=== PATIENT | male | born 1945 | race Caucasian/White ===

== ENCOUNTER → 2018-05-04 09:21 | Outpatient (CLI) | payer MEDICARE, SELFPAY ==
[2018-05-04 12:06] LABS: Anion Gap 8 (5-15); BUN 11 mg/dL (7-18); BUN/Creat Ratio 10.1 RATIO (10-20); Calcium,Total 9.1 mg/dL (8.5-10.1); Chloride 103 mmol/L (98-107); Creatinine, Serum 1.09 mg/dL (0.70-1.30); EST Glomerular Filtration Rate 71 mL/min (>60); Est Glom Filt Rate - Afr Amer 85 mL/min (>60); Glucose 106 mg/dL (74-106); Sodium Level 139 mmol/L (136-145)
[2018-05-04 12:08] LABS: Microalbumin,Random Urine 10.5 mg/L (NO RANGE EST.); Microalbumin:Creatinine Ratio 8.5 mg/g CRE (<30 mg/g CRE)
== END ==
PROVIDERS: Family Provider Family Medicine; PCP Family Medicine; Visit Provider Family Medicine
DX: I10 Essential (primary) hypertension (principal)
CPT/HCPCS: 36415; 80048; 82043; 82570

== ENCOUNTER → 2018-07-26 17:21 | Outpatient (CLI) | payer MEDICARE, SELFPAY ==
--- NOTE | 2018-07-26 17:26 | RAD_ITS ---
STUDY: X-RAY CHEST REASON FOR EXAM: Male, 73 years old. Fever and cough TECHNIQUE: PA and lateral views of the chest. COMPARISON: None. FINDINGS: Left lung is clear and well expanded. There is opacification in the right lung base with blunting of the right costophrenic angle suggesting a likely combination of infiltrate and effusion. Follow-up recommended to assure resolution. Normal size heart. Normal mediastinum and marcia. Normal visualized pulmonary arteries. Normal visualized aortic arch and descending thoracic aorta. Normal visualized thoracic spine. Normal visualized ribs, clavicles, and shoulders. There is no demonstrated abnormality of the visualized soft tissue structures of the upper abdomen. RAD/Chest PA and Lateral IMPRESSION: Right lower lobe pneumonia with pleural effusion. Follow-up recommended to assure resolution Electronically Signed: Gianluca Sequeira MD at 15:58 EST , Service support ,
--- OUTSIDE RECORDS SUMMARY | 2018-10-28 09:43 | XMS RPT_ITS ---
:1945 Author Organization OHIP Care Team Providers Name Role Phone Gino Camara Attending Unavailable Jax, Gino Referring Unavailable Jax, Gino Primary Care Unavailable Jax, Gino Attending Unavailable Camara, Gino Primary Care Unavailable Camara, Gino Attending Unavailable Camara, Gino Primary Care Unavailable PROBLEMS PROBLEMS DATE TYPE CONDITION / CODE ATTENDING STATUS SOURCE 05/10/2018 Unknown I10 - Essential Camara, Gino Active Louie (primary) [facility] hypertension / Hospital I10(ICD-10) Repository PROCEDURES PROCEDURES No Procedure Records FoundRESULTS RESULTS PROTHROMBIN TIME W/INR Collected: 07/28/2018 Status: F Source: [place] 11:[address] [facility] REPOSITORY TYPE CODE TESTS RESULT OUT OF RANGE REFERENCE UNITS LAB L300.4150 11.7-14.9 SECONDS Normal PROTIME 12.8 LAB L300.4200 Normal INR 1.0 Performed By: #### L300.3900 #### [facility] [address] [place], [address] PARTIAL THROMBOPLAST Collected: 07/28/2018 Status: F Source: LOUIE TIME 11:[address] [facility] REPOSITORY TYPE CODE TESTS RESULT OUT OF RANGE REFERENCE UNITS LAB L300.4310 24.1-36.2 Seconds Normal PTT 25.7 Performed By: #### L300.4310 #### [facility] [address] [place], [address] LDH Collected: 07/28/2018 Status: F Source: LOUIE 11:[address] [facility] REPOSITORY Order Comment: Serial Specimen #1, #2 or #3? 1 TYPE CODE TESTS RESULT OUT OF RANGE REFERENCE UNITS LAB L504.2610 87-241 U/L Normal LDH 226 Performed By: #### L504.2610 #### [facility] [address] [place], [address] CHEST PA AND LATERAL Observed: 07/26/2018 Status: F Source: [place] 5:[address] [facility] REPOSITORY [facility] Imaging Services [address] [place] [address] Chest PA and Lateral MR#: [id number] Acct: [id number] Name: JAYESH PINEDA Rep #: [id number] : 1945 M 73 From: Juntio Sequeira MD PCP: Gino Camara MD Status: REG CLI Study: Chest PA and Lateral Date of Exam: 07/26/18 Exam# [id number] Ordering Dr: Gino Camara MD STUDY: X-RAY CHEST REASON FOR EXAM: Male, 73 years old. Fever and cough TECHNIQUE: PA and lateral views of the chest. COMPARISON: None. FINDINGS: Left lung is clear and well expanded. There is opacification in the right lung base with blunting of the right costophrenic angle suggesting a likely combination of infiltrate and effusion. Follow-up recommended to assure resolution. Normal size heart. Normal mediastinum and marcia. Normal visualized pulmonary arteries. Normal visualized aortic arch and descending thoracic aorta. Normal visualized thoracic spine. Normal visualized ribs, clavicles, and shoulders. There is no demonstrated abnormality of the visualized soft tissue structures of the upper abdomen. RAD/Chest PA and Lateral IMPRESSION: Right lower lobe pneumonia with pleural effusion. Follow- up recommended to assure resolution Electronically Signed: Gianluca Sequeira MD at 15:58 EST , Service support , CC: Gino Camara MD Lining Machine Tender: Signed BASIC METABOLIC Collected: 05/04/2018 Status: F Source: LOUIE PROFILE (BMP) 9:[address] [facility] REPOSITORY TYPE CODE TESTS RESULT OUT OF RANGE REFERENCE UNITS LAB L501.0100 74-106 mg/dL Normal GLU 106 Result Comment: Fasting Glucose result from 100 to 125 mg/dL suggests IMPAIRED HOMEOSTASIS per A.D.A. criteria. Please note revised GLUCOSE reference range effective 2017. LAB L501.1000 7-18 mg/dL Normal BUN 11 LAB L501.1100 0.70-1.30 mg/dL Normal CREAT,SERUM 1.09 Result Comment: The validity of the calculated GFR AND GFRAA in patients over 70 years has not been determined. Clinical correlation is essential. LAB L501.1110 >60 mL/min Normal EST GFR 71 Result Comment: Non- GFR Calc LAB L501.1115 >60 mL/min Normal EST GFR - AA 85 Result Comment: GFR Calc LAB L501.1300 10-20 RATIO Normal BUN/CRE 10.1 LAB L501.2200 8.5-10.1 mg/dL CA Normal 9.1 LAB L501.5300 136-145 mmol/L NA Normal 139 LAB L501.5600 3.5-5.1 mmol/L K Normal 4.0 Result Comment: Slight Hemolysis, Result may be falsely increased. LAB L501.5900 98-107 mmol/L Normal CL 103 LAB L501.6100 21.0-32.0 mmol/L Normal CO2 28.0 LAB L501.6200 5-15 Normal 8 GAP Performed By: #### L500.2500, L502.0250 #### [facility] [address] [place], [address] MICROALB:CREAT Collected: 05/04/2018 Status: F Source: LOUIE RATIO,RANDOM UR 9:[address] [facility] REPOSITORY TYPE CODE TESTS RESULT OUT OF RANGE REFERENCE UNITS LAB L501.1200 NO RANGE EST. mg/dL Normal UR CREAT 124.00 LAB L502.0500 NO RANGE EST. mg/L Normal 10.5 MICROALBUMIN ,UR LAB L502.0600 <30 mg/g CRE mg/g CRE Normal 8.5 MALB:CREAT Performed By: #### L500.2500, L502.0250 #### [facility] [address] [place], [address] ALLERGIES ALLERGIES No Allergies Records FoundENCOUNTERS ENCOUNTERS ADMIT/DISCHARGE ACCOUNT ADMITTING ENCOUNTER LOCATION SOURCE NUMBER CLASS 07/28/2018 [id number] Ambulatory [place] 3 [facility] ing:MFPLAB Repository 07/26/2018 [id number] Ambulatory [place]ie [place] 2 [facility] ing:MTRAD Repository 05/04/2018 [id number] Ambulatory [place] 0 [facility] ing:MFPLAB Repository PAYERS PAYERS ENCOUNTER GUARANTOR PAYER SUBSCRIBER SOURCE 07/28/2018 JAYESH D Primary JAYESH D [place] [id number] [facility] Number: [id number] [id number] Repository [address]Fyc: 330) Date:1206-92-88FH [phone] () [place] [address]LI: 07/28/2018 Secondary NOT GIVENUNK [place] Insurance:SELF PAY [facility] Number: Effective Repository Date:2018-07-28 07/26/2018 JAYESH D Primary JAYESH D [place] [id number] Insurance:AETNA BARBARAPHREYDOB: [facility] Number: [id number] [id number] Repository [address]Dyt: 330) Date:5830-01-23GN [phone] () [id number] [address]PK: 07/26/2018 Secondary NOT GIVENUNK [place] Insurance:SELF PAY [facility] Number: Effective Repository Date:2018-07-26 05/04/2018 JAYESH D Primary JAYESH D [place] [id number] Insurance:AETNA HUMPHREYDOB: [facility] Number: [id number] [place], [place] [id number] Repository [address]Sfz: 330) Date:5994-86-51AE [phone] () [id number] [place] [address]LD: 05/04/2018 Secondary NOT GIVENUNK [place] Insurance:SELF PAY [facility] Number: Effective Repository Date:2018-05-04
== END ==
PROVIDERS: Family Provider Family Medicine; PCP Family Medicine; Referring Provider Family Medicine; Visit Provider Family Medicine
DX: J15.9 Unspecified bacterial pneumonia (principal)
CPT/HCPCS: 71046

== ENCOUNTER → 2018-07-28 11:11 | Outpatient (CLI) | payer MEDICARE, SELFPAY ==
[2018-07-28 12:26] LABS: Prothrombin Time (Protime)PT. 12.8 SECONDS (11.7-14.9)
[2018-07-28 12:27] LABS: Partial Thromboplast Time 25.7 Seconds (24.1-36.2)
[2018-07-28 12:53] LABS: LDH 226 U/L (87-241)
--- OUTSIDE RECORDS SUMMARY | 2018-10-29 15:26 | XMS RPT_ITS ---
[...] - Essential Camara, Gino Active Louie (primary) [facility] hypertension / Hospital I10(ICD-10) Repository PROCEDURES PROCEDURES No Procedure Records FoundRESULTS RESULTS PROTHROMBIN TIME W/INR Collected: 07/28/2018 Status: F Source: [place] 11:12 AM [facility] REPOSITORY TYPE CODE TESTS RESULT OUT OF RANGE REFERENCE UNITS LAB L300.4150 11.7-14.9 SECONDS Normal PROTIME 12.8 LAB L300.4200 Normal INR 1.0 Performed By: #### L300.3900 #### [facility] [address] [place], [address] PARTIAL THROMBOPLAST Collected: 07/28/2018 Status: F Source: [place]OU[place] TIME 11:12 AM [facility] REPOSITORY TYPE CODE TESTS RESULT OUT OF RANGE REFERENCE UNITS LAB L300.4310 24.1-36.2 Seconds Normal PTT 25.7 Performed By: #### L300.4310 #### [facility] [address] [place], [address] LDH Collected: 07/28/2018 Status: F Source: [place] 11:12 AM [facility] REPOSITORY Order Comment: Serial Specimen #1, #2 or #3? 1 TYPE CODE TESTS RESULT OUT OF RANGE REFERENCE UNITS LAB L504.2610 87-241 U/L Normal LDH 226 Performed By: #### L504.2610 #### [facility] [address] [place], [address] CHEST PA AND LATERAL Observed: 07/26/2018 Status: F Source: [place] 5:26 PM [facility] REPOSITORY [facility] Imaging Services [address] [place] [address] Chest PA and Lateral MR#: [id number] Acct: [id number] Name: JAYESH PINEDA Rep #: [id number] : 1945 M 73 From: Junito Sequeira MD PCP: Gino Camara MD Status: REG CLI Study: Chest PA and Lateral Date of Exam: 07/26/18 Exam# [id number] Ordering Dr: Gino Camara MD STUDY: X-RAY [...] Service support , CC: Gino Camara MD Electrotyper: Signed BASIC METABOLIC Collected: 05/04/2018 Status: F Source: [place] PROFILE (BMP) 9:24 AM [facility] REPOSITORY TYPE CODE TESTS RESULT OUT OF [...] GAP Performed By: #### L500.2500, L502.0250 #### [facility] [address] [place], [address] MICROALB:CREAT Collected: 05/04/2018 Status: F Source: LOUIE RATIO,RANDOM UR 9:24 AM [facility] REPOSITORY TYPE CODE TESTS RESULT OUT OF RANGE REFERENCE UNITS LAB L501.1200 NO RANGE EST. mg/dL Normal UR CREAT 124.00 LAB L502.0500 NO RANGE EST. mg/L Normal 10.5 MICROALBUMIN ,UR LAB L502.0600 <30 mg/g CRE mg/g CRE Normal 8.5 MALB:CREAT Performed By: #### L500.2500, L502.0250 #### [facility] [address] [place], [address] ALLERGIES ALLERGIES No Allergies Records FoundENCOUNTERS ENCOUNTERS ADMIT/DISCHARGE ACCOUNT ADMITTING ENCOUNTER LOCATION SOURCE NUMBER CLASS 07/28/2018 [id number] Ambulatory Lou[place] 3 [facility] ing:MFPLAB Repository 07/26/2018 [id number] Ambulatory [place] 2 [facility] ing:MTRAD Repository 05/04/2018 [id number] Ambulatory [place] 0 [facility] ing:MFPLAB Repository PAYERS PAYERS ENCOUNTER GUARANTOR PAYER SUBSCRIBER SOURCE 07/28/2018 JAYESH D Primary JAYESH D [place] [id number] Insurance:A[facility]NA [facility] Number: [id number] [id number] Repository [address]Bmj: 330) Date:9766-02-97RG [phone] () [id number], [place] [address]QC: 07/28/2018 Secondary NOT GIVENUNK [place] Insurance:SELF PAY [facility] Number: Effective Repository Date:2018-07-28 07/26/2018 JAYESH D Primary JAYESH D [place] [id number] Insurance:AETNA BARBARAPHREYDOB: [facility] Number: [id number] [id number] Repository [address]Dxi: 330) Date:6065-72-57AG [phone] () [place], [place] [address]XD: 07/26/2018 Secondary NOT GIVENUNK [place] Insurance:SELF PAY [facility] Number: Effective Repository Date:2018-07-26 05/04/2018 JAYESH D Primary JAYESH D [place] [id number] Insurance:AETNA HUMPHREYDOB: [facility] Number: [id number] [place], [place] [id number] Repository [address]Vsa: 330) Date:7211-17-88DP [phone] () [id number] [place] [address]FD: 05/04/2018 Secondary NOT GIVENUNK [place] Insurance:SELF PAY [facility] Number: Effective Repository Date:2018-05-04
== END ==
PROVIDERS: Family Provider Family Medicine; PCP Family Medicine; Visit Provider Family Medicine
DX: Z98.890 Other specified postprocedural states (principal)
CPT/HCPCS: 36415; 83615; 85610; 85730

== ENCOUNTER → 2019-04-25 11:36 | Outpatient (CLI) | payer MEDICARE, SELFPAY ==
--- NOTE | 2019-04-25 11:42 | RAD_ITS ---
STUDY: X-RAY CHEST REASON FOR EXAM: Male, 74 years old. Cough TECHNIQUE: Frontal and lateral views COMPARISON: July 26, 2018 FINDINGS: The lungs are expanded. There is a right pleural effusion with basilar infiltrate. Borderline size heart. Normal mediastinum and marcia. Normal visualized pulmonary arteries. Normal visualized aortic arch and descending thoracic aorta. Normal visualized thoracic spine. Normal visualized ribs, clavicles, and shoulders. There is no demonstrated abnormality of the visualized soft tissue structures of the upper abdomen. RAD/Chest PA and Lateral IMPRESSION: Right basilar effusion with infiltrate. Electronically Signed: Jeffrey Rowe DO at 23:29 EDT Tel [phone], Service support ,
--- NOTE | 2019-04-25 11:42 | RAD_ITS ---
STUDY: X-RAY - PARANASAL SINUSES REASON FOR EXAM: Male, 74 years old. Cough, sinusitis. Recently finished right lung radiation therapy. TECHNIQUE: 3 view(s) of the paranasal sinuses were obtained. COMPARISON: None. FINDINGS: Normal visualized frontal, maxillary, ethmoidal and sphenoid sinuses. Normal visualized facial bones. The facial and extracranial soft tissue structures are unremarkable. Incidental note of lobulated calcification along the anterior falx cerebri, as well as calcifications in the expected position of the pineal gland. RAD/Sinuses min 3 Views IMPRESSION: Normal x-rays of the paranasal sinuses. Electronically Signed: Gianluca Braga MD at 13:34 EDT , Service support ,
== END ==
PROVIDERS: Family Provider Family Medicine; PCP Family Medicine; Referring Provider Family Medicine; Visit Provider Family Medicine
DX: J32.9 Chronic sinusitis, unspecified (principal); R05 Cough
CPT/HCPCS: 70220; 71046

== ENCOUNTER → 2019-04-28 14:36 | Outpatient (CLI) | payer MEDICARE, SELFPAY ==
--- NOTE | 2019-04-28 14:39 | CT_ITS ---
STUDY: CT CHEST WITHOUT CONTRAST REASON FOR EXAM: Male, 74 years old. Pleural effusion. Pulmonary infection. History of sarcoma and melanoma. RADIATION DOSAGE (If Supplied By Facility): CTDIvol = ( 16.27 ) mGy, DLP = ( 619.38 ) mGycm TECHNIQUE: Transaxial imaging was performed without the administration of intravenous contrast material. Individualized dose optimization techniques were used for this CT. COMPARISON: Chest x-ray 07/26/2018, and 04/25/2019. FINDINGS: There is underlying hyperexpansion of the lungs consistent with chronic pulmonary disease. Moderately extensive complex pulmonary density seen in the lower right hemithorax where there is pleural thickening and/or fluid in the lower hemithorax including what appears to be a lenticular loculated pleural fluid collection measuring approximately 10.2 x 2.9 x 10.2 cm along the lateral lower hemithorax. A small amount of free pleural effusion is also likely. Extensive and irregular pulmonary opacities are seen in the right lung base and middle lobe, possibly scarring, atelectasis or infiltrate, but neoplasm is not excluded. Some air bronchograms and localized bronchiectasis is seen in the lower right lung. Normal left lung. No left pleural effusion. Evaluation of the soft tissues is limited by the absence of IV contrast. Normal heart size. Calcified coronary arteries. Grossly normal aorta and pulmonary arteries. Calcified granulomas in the right hilum and subcarinal space. No gross mediastinal mass or adenopathy. Limited views of the upper abdomen show a probable 2 cm cyst in the liver. Skeletal structures are unremarkable. CT/Chest without Contrast IMPRESSION: Abnormalities in the lower right hemithorax most suggestive of chronic pleural parenchymal scarring although active disease including atelectasis, infiltrate and/or neoplasm cannot be excluded. There is a least one focal loculated pleural fluid collection. Electronically Signed: Kavon Jordan MD at 18:50 EDT , Service support ,
== END ==
PROVIDERS: Family Provider Family Medicine; PCP Family Medicine; Referring Provider Family Medicine; Visit Provider Family Medicine
DX: J18.9 Pneumonia, unspecified organism (principal)
CPT/HCPCS: 71250

== ENCOUNTER → 2020-01-24 09:10 | Outpatient (CLI) | payer MEDICARE, SELFPAY ==
--- NOTE | 2020-01-24 09:13 | RAD_ITS ---
PROCEDURE: Sniff test. DATE OF EXAMINATION: January 24, 2020 INDICATION: Male, 75 years old. Dyspnea. History of sarcoma. FLUOROSCOPY TIME (if supplied): (20 seconds) minutes/seconds. One image was obtained. There is normal excursion of the diaphragms during the inspiration expiration maneuvers. RAD/Chest Sniff Test Fluoro Only IMPRESSION: Normal excursion of the diaphragms. Electronically Signed: Domingo Johnson, at 9:34 EDT , Service support ,
== END ==
PROVIDERS: PCP Family Medicine; Referring Provider Internal Medicine Pulmonary Disease; Visit Provider Internal Medicine Pulmonary Disease
DX: R06.00 Dyspnea, unspecified (principal)
CPT/HCPCS: 76000

== ENCOUNTER → 2020-02-08 08:47 | Outpatient (CLI) | payer MEDICARE, SELFPAY ==
--- NOTE | 2020-02-08 08:52 | RAD_ITS ---
STUDY: X-RAY - LUMBAR SPINE REASON FOR EXAM: Male, 75 years old. LBP TECHNIQUE: 5 view(s) of the lumbar spine were obtained. COMPARISON: None FINDINGS: Normal lumbar lordosis. There is no substantial scoliosis. There is a normal alignment of the vertebrae. Normal vertebral bodies and endplates. Normal disc space heights. Vascular calcifications. RAD/L/S Spine Min 4 Views IMPRESSION: Normal x-ray examination of the lumbar spine. Electronically Signed: Olu Orta MD at 17:13 EDT Tel , Service support ,
== END ==
PROVIDERS: PCP Family Medicine; Referring Provider Nurse Practitioner Family; Visit Provider Nurse Practitioner Family
DX: M54.9 Dorsalgia, unspecified (principal)
CPT/HCPCS: 72110

== ENCOUNTER → 2020-02-29 06:24 | Outpatient (CLI) | payer MEDICARE, SELFPAY ==
--- NOTE | 2020-02-29 06:31 | MRI_ITS ---
STUDY: MRI LUMBAR SPINE WITHOUT CONTRAST REASON FOR EXAM: Male, 75 years old. BACK PAIN -- pain low back, left side, left leg x 2 months, hx rt lung sarcoma 2018 TECHNIQUE: Standardized fat and water weighted pulse sequences were obtained in the sagittal and axial planes. COMPARISON: None FINDINGS: T12-L1: Normal endplates. Normal disc height, hydration and morphology. Normal bilateral facet joints. Normal central canal and bilateral lateral recesses. Normal bilateral intervertebral neural foramina. Normal lumbar lordosis. There is no substantial scoliosis. Normal conus medullaris that terminates at the L1. L1-2: Normal endplates. Normal disc height, hydration and morphology. Normal bilateral facet joints. Normal central canal and bilateral lateral recesses. Normal bilateral intervertebral neural foramina. L2-3: Normal endplates. Normal disc height, hydration and morphology. Normal bilateral facet joints. Normal central canal and bilateral lateral recesses. Normal bilateral intervertebral neural foramina. L3-4: Normal endplates. Normal disc height, hydration and morphology. Normal bilateral facet joints. Normal central canal and bilateral lateral recesses. Normal bilateral intervertebral neural foramina. L4-5: Mild broad disc protrusion produces minimal spinal stenosis and mild bilateral neural foraminal stenosis. L5-S1: Normal endplates. Normal disc height, hydration and morphology. Normal bilateral facet joints. Normal central canal and bilateral lateral recesses. Normal bilateral intervertebral neural foramina. Normal visualized sacral ala. Large (5 x 7 x 12 cm) bilobed heterogeneous mass of the left paraspinous musculature. Differential diagnosis includes a intramuscular hematoma from anticoagulation, or sarcoma. MRI/Spine Lumbar (Routine) IMPRESSION: 1. Essentially Normal unenhanced MR examination of the lumbar spine. 2. Large (5 x 7 x 12 cm) bilobed heterogeneous mass of the left paraspinous musculature worrisome for intramuscular hematoma or a sarcoma. Electronically Signed: Marito Alves MD at 8:23 EDT Tel , Service support ,
== END ==
PROVIDERS: PCP Family Medicine; Referring Provider Anesthesiology Pain Medicine; Visit Provider Anesthesiology Pain Medicine
DX: M47.819 Spondylosis without myelopathy or radiculopathy, site unspecified (principal)
CPT/HCPCS: 72148

== ENCOUNTER → 2020-03-02 14:03 | Outpatient (CLI) | payer MEDICARE, SELFPAY ==
--- NOTE | 2020-03-02 | IMM_PTH ---
PATIENT: JAYESH PINEDA LOC: [facility] U#:[id number] AGE/SX: 80/M ROOM: RE03/02/[address]: Dr. Andrea Spring MD : 1945 BED: DIS: SPEC #: [id number] RECD: 03/06/20 12:31 STATUS: TIM REQ #: [id number] CAROL: 03/02/20 00:[address]: Andrea Spring DEPT: IMMUNOHISTOCHEMISTRY RECD BY: Rocio Davenport ENTERED: 03/06/20 12:32 SP TYPE: IMMUNO OTHR DR: Dr. Gino Camara MD Tissues: Skin of back, NOS Procedures: SMA (add) CD31 (add) CD34 (add) CD45 (add) DESMIN (add) KI-67 (add) P53 (add) Vimentin (add) SMM (add) FACTOR VIII (add) Pankeratin (initial) MELAN-A (add) S-100 (add) PHYSICIAN & [address] [address] SPECIMEN INFORMATION: Tissue Source: Left lower back mass biopsy Clinical Info: Left lower back mass Specimen Number: [id number] CPT code: 44205, 03749 x12 METHODOLOGY: Deparaffinized sections of prefer/formalin-fixed tissue or PAP/DQ stained slides are incubated with monoclonal/polyclonal antibodies/oligonucleotide probes. Localization is made via biotin free immunoperoxidase method. Appropriate controls are performed and reacted as expected. Results on target cell population are indicated in the following table: RESULTS: ANTIBODY / CLONE RESULT AE1-3 (AE1/AE3/PCK26) negative CD45 (RP2/18) negative Vimentin (V9) positive Melan A (A103) negative S-100 (4C4.9) negative P53 (DO-7) negative Ki-67 (30-9) positive, >90% Actin (1A4) negative Desmin (CE-R-11) negative Myosin (simms1) negative CD34 (QBEnd-10) negative Factor VIII (R Ag) negative CD31 (APRIL/70A) positive These tests were developed and their performance characteristics determined by [facility]. They may not have been cleared or approved by the U.S. Food and Drug Administration. The FDA has determined that such clearance or approval is not necessary. The above immunohistochemical/dualISH markers are ordered and reviewed by the Pathologist. INTERPRETATION: Left lower back mass, biopsy: Consistent with high-grade sarcoma. AM:fly 03/14/20 Case has been reviewed in consultation with Dr. Harrison who concurs with the above diagnosis. IDC:SJ
--- NOTE | 2020-03-02 | MASS_PTH ---
PATIENT: JAYESH PINEDA LOC: [facility] U#:[id number] AGE/SX: 80/M ROOM: RE03/02/[address]: Dr. Andrea Spring MD : 1945 BED: DIS: SPEC #: [id number] RECD: 03/02/20 14:01 STATUS: TIM ZACHARY #: [id number] CAROL: 03/02/20 00:[address]: Andrea Spring DEPT: SURGICAL PATHOLOGY RECD BY: Jose Dumont ENTERED: 03/05/20 07:59 SP TYPE: Mass OTHR DR: Dr. Gino Camara MD Tissues: Back, NOS Procedures: Surgery Specimen Level IV HEADER OPERATION: Ultrasound-guided needle core biopsy mass left lower back PRE-OP DIAGNOSIS: Mass of lower back TISSUE SUBMITTED: Biopsy left back mass MICROSCOPIC DIAGNOSIS Mass of lower back, ultrasound-guided needle core biopsy: High-grade sarcoma, favor angiosarcoma. See comment. AM:fly 03/14/20 COMMENT Immunohistochemistry ([id number]) supports the above diagnosis. This case was reviewed in consultation with Dr. Andie Sosa of [place]. The complete consultative report is viewable in EMR. The neoplastic cells are positive for ERG, CD31 and FLI-1, favoring an angiosarcoma. Case has been reviewed in consultation with Dr. Harrison who concurs with the above diagnosis. IDC:SJ MICROSCOPIC DESCRIPTION Slides are reviewed. GROSS DESCRIPTION Received in fixative is one container labeled with the patient's name and designated left back mass. The specimen consists of multiple irregular fragments of light heath soft tissue that in aggregate measure 0.8 x 0.7 x 0.1 cm. The specimen is totally submitted in one cassette. / AM:fly 03/05/20 TC:0 CPT: 85814 ADDENDUM ADDENDUM ADDENDUM ADDENDUM ADDENDUM ADDENDUM 03/22/2020 09:20 ADDENDUM 03/22/2020 09:20 ADDENDUM 03/22/2020 09:20 ADDENDUM 03/22/2020 09:20 ADDENDUM 03/22/2020 09:20 PD-L1 (KEYCHUYUDA) IMMUNOHISTOCHEMICAL ANALYSIS FROM [facility] RESULTS: Tumor proportion score: 40% / positive Please see complete report in e-chart or EMR for complete details
[2020-03-02 12:29] VITALS: BMI 24.4
== END ==
PROVIDERS: PCP Family Medicine; Referring Provider Surgery; Visit Provider Surgery
DX: R22.2 Localized swelling, mass and lump, trunk (principal)
CPT/HCPCS: 88305; 88341; 88342